=== PATIENT | male | born 1975 | race African-American/Black ===

== ENCOUNTER 2023-09-19 07:54 | Observation (INO) | payer OTHER ==
[~2023-09-19] VITALS: Ht 180.3 cm; Wt 110.7 kg
[~2023-09-19 07:54] MED LIST: BENZTROPINE MESY1 MG PO; BUPROPION XL150 MG PO; BUSPIRONE HCL10 MG PO; MELOXICAM7.5 MG PO; METHOCARBAMOL750 MG PO; NEURONTIN100 MG PO; ZYPREXA10 MG PO; ZYPREXA20 MG PO
[2023-09-19] MEDS ORDERED: LACTATED RINGER'S 1,000 ML ONE (08:29)
[2023-09-19] MEDS: LACTATED RINGER'S 1,000 ML BAG IV ONE (08:40)
[2023-09-19] MEDS ORDERED: EPINEPHRINE HCL 1:1000 1ML 1 MG/ML AMP ONE ×2 (09:09→12:28)
[2023-09-19] MEDS ORDERED: LIDOCAINE 1% W/EPINEPHRINE 20 ML VIAL ONE ×2 (09:09→12:28)
[2023-09-19] MEDS ORDERED: PHENYLEPHRINE HCL 1% 10 MG/ML VIAL ONE (11:05)
[2023-09-19] MEDS ORDERED: FAMOTIDINE 20 MG/2 ML VIAL IV ONE (11:05)
[2023-09-19] MEDS ORDERED: LIDOCAINE HCL 2% LOCAL INJ 5 ML SDV VIAL INJ ONE (11:05)
[2023-09-19] MEDS ORDERED: PROPOFOL IV EMULSION 10 MG/ML 20 ML VIAL ONE (11:05)
[2023-09-19] MEDS ORDERED: SEVOFLURANE INHAL SOLN 250 ML PEN BTL ONE (11:05)
[2023-09-19] MEDS ORDERED: ACETAMINOPHEN 1000 MG/100 ML IV ONE (11:05)
[2023-09-19] MEDS ORDERED: SUGAMMADEX SODIUM 200 MG/2 ML VIAL IV ONE (11:05)
[2023-09-19] MEDS ORDERED: ROCURONIUM BROMIDE 10 MG/ML 5ML VIAL IV ONE (11:05)
[2023-09-19] MEDS ORDERED: DEXMEDETOMIDINE HCL 200 MCG/2 ML VIAL ONE (11:05)
[2023-09-19] MEDS ORDERED: ONDANSETRON HCL INJ 2MG/ML 2ML 2 MG/ML VIAL ONE (11:05)
[2023-09-19] MEDS ORDERED: DEXAMETHASONE SOD PHOS 10 MG/1 ML VIAL ONE (11:05)
[2023-09-19] MEDS ORDERED: HYDRALAZINE HCL 20 MG/ML VIAL ONE ×2 (11:51→12:42)
[2023-09-19] MEDS ORDERED: LACTATED RINGER'S 1,000 ML BAG ONE (13:02)
[2023-09-19] MEDS ORDERED: FLUMAZENIL 0.5MG/ 5ML VIAL ONE (14:48)
[2023-09-19 15:55] VITALS: BP 159/112; PULSE 118; RESP 19; TEMP 97.9; O2SAT 98
[2023-09-19 16:03] VITALS: BP 159/112; PULSE 118; RESP 19; TEMP 97.9; O2SAT 99
[2023-09-19] MEDS ORDERED: MIDAZOLAM HCL 2 MG/2 ML VIAL ONE (16:11)
[2023-09-19] MEDS ORDERED: FENTANYL CITRATE/PF 100MCG/2 ML INJ ONE (16:11)
[2023-09-19 16:30] VITALS: BP 159/112; PULSE 118; RESP 19; TEMP 97.9; O2SAT 99
[2023-09-19] MEDS ORDERED: FAMOTIDINE 20 MG TAB PO PRN (17:00)
[2023-09-19] MEDS ORDERED: ONDANSETRON HCL 4 MG ORAL DISINTEGRATING TAB PO PRN (17:00)
[2023-09-19] MEDS: GABAPENTIN 100 MG CAP PO SCH (17:08)
[2023-09-19] MEDS: HYDRALAZINE HCL 20 MG/ML VIAL IV PRN (17:08)
[2023-09-19] MEDS: BUSPIRONE HCL 10 MG TABLET PO SCH (17:08)
[2023-09-19] MEDS: ACETAMINOPHEN 325 MG TAB PO PRN (17:52)
[2023-09-19 18:42] LABS: ALBUMIN/GLOBULIN RATIO 1.2 (0.8-2.0); ANION GAP 17.1 mmol/L (8-16); BILIRUBIN,TOTAL 0.4 mg/dL (0.2-1.2); CALCIUM 9.1 mg/dL (8.4-10.2); CREATININE, SERUM 1.15 mg/dL (0.72-1.25); POTASSIUM 4.1 mmol/L (3.5-5.1); TOTAL PROTEIN 7.4 g/dL (6.5-8.1)
[2023-09-19 20:00] VITALS: BP 132/87; PULSE 110; RESP 20; TEMP 98.1; O2SAT 95
[2023-09-19 20:04] VITALS: BP 132/87; PULSE 110; RESP 22; TEMP 98.1; O2SAT 95
[2023-09-19 20:32] LABS: BASOPHILS % 0.1 % (0.0-1.0); HEMATOCRIT 41.4 % (38.2-49.6); HEMOGLOBIN 15.1 g/dL (14.0-18.0); LYMPHOCYTES # (AUTO) 0.6 (1.0-3.2); LYMPHOCYTES % 3.8 % (18.0-39.1); MEAN CORPUSCULAR HEMOGLOBIN 32.8 pg (28-32); MEAN CORPUSCULAR HGB CONC 36.5 g/dL (31-35); MEAN CORPUSCULAR VOLUME 89.8 fL (81-99); MONOCYTES # (AUTO) 0.1 (0.2-0.8); MONOCYTES % 0.7 % (4.4-11.3); NEUTROPHILS # (AUTO) 14.3 (2.1-6.9); NEUTROPHILS % 94.9 % (38.7-80.0); PLATELET COUNT 247 x10e3/uL (140-360); RED BLOOD COUNT 4.61 x10e6/uL (4.3-5.7); RED CELL DISTRIBUTION WIDTH 12.9 % (11.7-14.4); WHITE BLOOD COUNT 15.11 x10e3/uL (4.8-10.8)
[2023-09-19] MEDS: OLANZAPINE 5 MG TAB PO SCH (20:37)
[2023-09-19] MEDS: BENZTROPINE MESYLATE 1 MG TAB PO SCH (20:37)
[2023-09-19] MEDS: MELATONIN 5 MG TABLET PO PRN (20:37)
[2023-09-19] MEDS ORDERED: OLANZAPINE 20 MG PO SCH (21:00)
[2023-09-19] MEDS: ACETAMINOPHEN/CODEINE 300MG - 30MG TAB PO PRN (22:12)
[2023-09-19] MEDS: SODIUM CHLORIDE 0.9% 1000ML 1,000 ML IV SCH (22:12)
[2023-09-19 23:42] VITALS: BP 147/75; PULSE 118; RESP 21; TEMP 98.4; O2SAT 95
[2023-09-20] VITALS: BP 147/75; PULSE 118; RESP 20; TEMP 98.4; O2SAT 95
[2023-09-20 03:18] VITALS: BP 147/75; PULSE 118; RESP 21; TEMP 98.4; O2SAT 95
[2023-09-20 04:00] VITALS: BP 140/92; PULSE 103; RESP 18; TEMP 98.6; O2SAT 95
[2023-09-20 05:16] LABS: BASOPHILS % 0.1 % (0.0-1.0); HEMATOCRIT 40.9 % (38.2-49.6); HEMOGLOBIN 14.3 g/dL (14.0-18.0); LYMPHOCYTES # (AUTO) 0.7 (1.0-3.2); LYMPHOCYTES % 4.5 % (18.0-39.1); MEAN CORPUSCULAR HEMOGLOBIN 32.4 pg (28-32); MEAN CORPUSCULAR VOLUME 92.5 fL (81-99); MONOCYTES # (AUTO) 0.4 (0.2-0.8); MONOCYTES % 2.9 % (4.4-11.3); NEUTROPHILS # (AUTO) 13.5 (2.1-6.9); NEUTROPHILS % 91.7 % (38.7-80.0); PLATELET COUNT 251 x10e3/uL (140-360); RED BLOOD COUNT 4.42 x10e6/uL (4.3-5.7); RED CELL DISTRIBUTION WIDTH 13.1 % (11.7-14.4); WHITE BLOOD COUNT 14.74 x10e3/uL (4.8-10.8)
[2023-09-20 05:30] VITALS: BP 140/92; PULSE 103; RESP 18; TEMP 98.6; O2SAT 95
[2023-09-20 06:16] LABS: ALBUMIN 3.8 g/dL (3.5-5.0); ALBUMIN/GLOBULIN RATIO 1.1 (0.8-2.0); ANION GAP 15.3 mmol/L (8-16); BILIRUBIN,TOTAL 0.3 mg/dL (0.2-1.2); CALCIUM 9.1 mg/dL (8.4-10.2); CREATININE, SERUM 1.15 mg/dL (0.72-1.25); POTASSIUM 4.3 mmol/L (3.5-5.1); TOTAL PROTEIN 7.3 g/dL (6.5-8.1)
[2023-09-20] MEDS ORDERED: LOSARTAN POTASSIUM 25 MG TAB ONE ×2 (07:43→17:37)
[2023-09-20] MEDS ORDERED: BUPROPION HCL 150 MG TABCR ONE ×2 (07:44→17:37)
[2023-09-20] MEDS ORDERED: GABAPENTIN 100 MG CAP ONE ×2 (07:44→17:37)
[2023-09-20] MEDS ORDERED: OLANZAPINE 5 MG TAB ONE ×2 (07:44→17:37)
[2023-09-20] MEDS ORDERED: BUSPIRONE HCL 10 MG TABLET ONE ×2 (07:44→17:37)
[2023-09-20] MEDS ORDERED: COZAAR25 MG PO (08:17)
[2023-09-20 08:20] VITALS: BP 163/101; PULSE 101; RESP 21; TEMP 97.9; O2SAT 100
[2023-09-20] MEDS: BUPROPION HCL 150 MG TABCR PO SCH (08:45)
[2023-09-20] MEDS: LOSARTAN POTASSIUM 25 MG TAB PO SCH (08:45)
[2023-09-20] MEDS: OLANZAPINE 5 MG TAB PO SCH (08:45)
[2023-09-20 09:00] VITALS: BP 132/68
== END 2023-09-20 10:25 | disposition home or self-care (01) ==
LOC: OR 07:54 → PACU V 13:12 → MED/SURG2 15:39
PROVIDERS: ADMIT Family Medicine Adult Medicine; ATTEND Family Medicine Adult Medicine
DX: J34.89 Other specified disorders of nose and nasal sinuses (principal); J34.2 Deviated nasal septum; R09.81 Nasal congestion; I10 Essential (primary) hypertension; F43.10 Post-traumatic stress disorder, unspecified; F41.9 Anxiety disorder, unspecified; F32.A Depression, unspecified; G40.909 Epilepsy, unspecified, not intractable, without status epilepticus; F17.200 Nicotine dependence, unspecified, uncomplicated; Z71.6 Tobacco abuse counseling; E66.9 Obesity, unspecified; Z68.34 Body mass index [BMI] 34.0-34.9, adult; R00.0 Tachycardia, unspecified; Z79.899 Other long term (current) drug therapy; Z72.0 Tobacco use
CPT/HCPCS: 30520; 36415 ×2; 80053 ×2; 85025 ×2; 88305; 88311; 93005; G0378 ×2; J0131; J0171; J0360; J1100; J2001; J2250; J2371; J2405; J2704; J3010; J7121; 88300